=== PATIENT | female | born 1950 | race Caucasian/White ===

== ENCOUNTER 2018-04-13 12:43 | Emergency (ER) | payer OTHER, MEDICARE ==
[~2018-04-13] VITALS: Ht 165.1 cm; Wt 89.0 kg
[2018-04-13 12:46] VITALS: BP 134/88
[2018-04-13] MEDS ORDERED: DIPH,PERTUSS(ACELL),TET VAC/PF 0.5 ML IM-VACC ONE ×3 (13:00→13:30)
[2018-04-13] MEDS ORDERED: OMEP-110 PO (13:01)
[2018-04-13] MEDS ORDERED: LIDOCAINE-MPF 1%, 5ML ONE ×2 (13:08→14:06)
[2018-04-13] MEDS ORDERED: BACITRACIN ZINC OINT 500U/GM, 0.9 GM ONE (14:25)
== END 2018-04-13 14:29 | disposition home or self-care (01) ==
LOC: ED 14:20
DX: S61.217A Laceration without foreign body of left little finger without damage to nail, initial encounter (principal); W25.XXXA Contact with sharp glass, initial encounter; Y93.89 Activity, other specified; Y92.009 Unspecified place in unspecified non-institutional (private) residence as the place of occurrence of the external cause; Y99.8 Other external cause status
CPT/HCPCS: 12042; 90471; 90715

== ENCOUNTER → 2019-10-10 | Outpatient (CLI) | payer OTHER ==
[~2019-10-10] MED LIST: OMEP-110 PO
== END | disposition home or self-care (01) ==
LOC: CFH 10:42
PROVIDERS: ATTEND Family Medicine
DX: M75.112 Incomplete rotator cuff tear or rupture of left shoulder, not specified as traumatic (principal); M19.012 Primary osteoarthritis, left shoulder; M75.52 Bursitis of left shoulder; M25.412 Effusion, left shoulder

== ENCOUNTER → 2020-08-01 | Outpatient (CLI) | payer OTHER, MEDICARE | END | disposition home or self-care (01) | LOC: CFH 10:42 | PROVIDERS: ATTEND Family Medicine | DX: R00.2 Palpitations (principal) | CPT/HCPCS: 71046 ==

== ENCOUNTER 2020-08-18 11:42 | Outpatient (CLI) | payer OTHER, MEDICARE | END 2020-08-18 23:59 | disposition home or self-care (01) | LOC: CVU 11:42 | PROVIDERS: ATTEND Family Medicine | DX: I08.1 Rheumatic disorders of both mitral and tricuspid valves (principal); R00.2 Palpitations | CPT/HCPCS: 93225; 93226; 93306 ==

== ENCOUNTER 2020-11-05 08:35 | Outpatient (CLI) | payer OTHER, MEDICARE | END 2020-11-05 23:59 | disposition home or self-care (01) | LOC: CARD 08:35 | PROVIDERS: ATTEND Family Medicine | DX: R07.89 Other chest pain (principal); R00.2 Palpitations | CPT/HCPCS: 93017 ==